=== PATIENT | female | born 1965 | race Caucasian/White ===

== ENCOUNTER 2019-09-07 00:24 | Emergency (ER) | payer MEDICAID ==
[~2019-09-07] VITALS: Ht 162.6 cm; Wt 113.6 kg
[2019-09-07] MEDS ORDERED: ketorolac trometh inj. 60 MG/2 ML VIAL IM ONE (01:35)
[2019-09-07] MEDS ORDERED: HYDROcodone/acetaminophen 5mg/325mg tablet PO ONE (02:10)
[2019-09-07] MEDS ORDERED: HYDR-3965 PO (02:19)
[2019-09-07 02:46] VITALS: BP 144/70
== END 2019-09-07 02:42 | disposition home or self-care (01) ==
LOC: ER 00:25
DX: M77.9 Enthesopathy, unspecified (principal); M25.522 Pain in left elbow; Z88.5 Allergy status to narcotic agent; Z88.6 Allergy status to analgesic agent; Z79.899 Other long term (current) drug therapy; X50.0XXA Overexertion from strenuous movement or load, initial encounter; Y93.89 Activity, other specified; Y92.89 Other specified places as the place of occurrence of the external cause; Y99.8 Other external cause status
CPT/HCPCS: 73030; 96372; 99283; J1885

== ENCOUNTER 2019-09-07 17:57 | Emergency (ER) | payer MEDICAID ==
[~2019-09-07] VITALS: Ht 162.6 cm; Wt 113.6 kg
[~2019-09-07 17:57] MED LIST: HYDR-3965 PO
[2019-09-07 18:03] VITALS: BP 147/76
[2019-09-07] MEDS ORDERED: ketorolac trometh inj. 60 MG/2 ML VIAL IM ONE (18:10)
== END 2019-09-07 18:31 | disposition home or self-care (01) ==
LOC: ER 17:58
DX: M25.512 Pain in left shoulder (principal); G89.29 Other chronic pain; Z98.890 Other specified postprocedural states; Z88.5 Allergy status to narcotic agent; Z88.6 Allergy status to analgesic agent; Z79.899 Other long term (current) drug therapy
CPT/HCPCS: 96372; 99283; J1885

== ENCOUNTER 2023-03-04 10:56 | Emergency (ER) | payer BC, MEDICAID ==
[~2023-03-04] VITALS: Ht 162.6 cm; Wt 100.0 kg
[2023-03-04 11:05] VITALS: BP 163/74
--- NOTE | 2023-03-04 11:18 | NUR ---
PT IN [facility]11, PT C/O HEADACHE X3 DAYS. PT STATES SHE TOOK IBU AND IT SEEMED TO GO AWAY. PT SAID IT STARTED AGAIN TODAY. PT EDUCATED TO POC. PT IN AGREEMENT. PENDING MD ORDERS EVAL AND TREATMENT.
[2023-03-04] MEDS ORDERED: metoclopramide 10mg tablet PO ONE (11:25)
[2023-03-04] MEDS ORDERED: SUMAtriptan 5 mg Nasal Spray NS ONE (11:45)
[2023-03-04] MEDS ORDERED: SUMAtriptan succ. 6 MG/0.5ml vial SQ ONE (12:00)
[2023-03-04] MEDS ORDERED: METO-292 PO (13:19)
[2023-03-04] MEDS ORDERED: [UNRECOGNIZED DRUG - CODE] PO (13:19)
[2023-03-04] MEDS ORDERED: [UNRECOGNIZED DRUG - CODE] OT (13:34)
== END 2023-03-04 13:30 | disposition home or self-care (01) ==
LOC: ER 10:56
DX: G43.909 Migraine, unspecified, not intractable, without status migrainosus (principal); G89.29 Other chronic pain; Z98.890 Other specified postprocedural states; Z88.5 Allergy status to narcotic agent; Z79.899 Other long term (current) drug therapy
CPT/HCPCS: 96372; 99283; J3030

== ENCOUNTER 2023-05-19 17:50 | Emergency (ER) | payer OTHER, BC, MEDICAID ==
[~2023-05-19] VITALS: Ht 162.6 cm; Wt 93.1 kg
[~2023-05-19 17:50] MED LIST changes: -HYDR-3965 PO; +METO-292 PO; +[UNRECOGNIZED DRUG - CODE] OT; +[UNRECOGNIZED DRUG - CODE] PO
[2023-05-19 18:53] VITALS: BP 170/88
--- NOTE | 2023-05-19 19:12 | NUR ---
C COLLAR PLACED IN TRIAGE.
[2023-05-19] MEDS ORDERED: ORPH100T4 PO (21:34)
== END 2023-05-19 21:50 | disposition home or self-care (01) ==
LOC: ER 17:50
DX: S16.1XXA Strain of muscle, fascia and tendon at neck level, initial encounter (principal); S90.31XA Contusion of right foot, initial encounter; S46.912A Strain of unspecified muscle, fascia and tendon at shoulder and upper arm level, left arm, initial encounter; S46.911A Strain of unspecified muscle, fascia and tendon at shoulder and upper arm level, right arm, initial encounter; R07.81 Pleurodynia; M79.674 Pain in right toe(s); G43.909 Migraine, unspecified, not intractable, without status migrainosus; E03.9 Hypothyroidism, unspecified; M19.90 Unspecified osteoarthritis, unspecified site; Z88.5 Allergy status to narcotic agent; Z88.6 Allergy status to analgesic agent; V89.2XXA Person injured in unspecified motor-vehicle accident, traffic, initial encounter; Y93.89 Activity, other specified; Y92.89 Other specified places as the place of occurrence of the external cause; Y99.8 Other external cause status
CPT/HCPCS: 73630; 99283; L0172

== ENCOUNTER 2024-10-28 08:42 | Emergency (ER) | payer BC, MEDICAID, OTHER ==
[~2024-10-28] VITALS: Ht 167.6 cm; Wt 107.7 kg
[~2024-10-28 08:42] MED LIST changes: +ORPH100T4 PO
[2024-10-28 08:44] VITALS: BP 221/92; PULSE 81; RESP 18; TEMP 97.8; O2SAT 97
== END 2024-10-28 12:12 | disposition left against medical advice (07) ==
LOC: ER 08:43
DX: G43.909 Migraine, unspecified, not intractable, without status migrainosus (principal); Z53.21 Procedure and treatment not carried out due to patient leaving prior to being seen by health care provider

== ENCOUNTER 2025-02-08 21:50 | Emergency (ER) | payer BC ==
[~2025-02-08] VITALS: Ht 162.6 cm; Wt 105.5 kg
[2025-02-08 23:13] LABS: BASOPHILS # (AUTO) 0.1 X10'3 (0-0.2); EOSINOPHILS # (AUTO) 0.4 X10'3 (0-0.9); EOSINOPHILS % (AUTO) 6.7 % (0-6); HEMATOCRIT 37.9 % (35.0-45.0); HEMOGLOBIN 12.7 g/dl (12.0-16.0); LYMPHOCYTES # (AUTO) 1.1 X10'3 (1.1-4.8); LYMPHOCYTES % (AUTO) 20.5 % (21-51); MEAN CORPUSCULAR HEMOGLOBIN 29.6 PG (27.0-31.0); MEAN CORPUSCULAR HGB CONC 33.5 g/dL (33.0-36.5); MEAN CORPUSCULAR VOLUME 88.3 FL (78-98); MEAN PLATELET VOLUME 7.7 FL (7.4-10.4); MONOCYTES # (AUTO) 0.5 X10'3 (0-0.9); MONOCYTES % (AUTO) 9.3 % (2-12); NEUTROPHILS # (AUTO) 3.5 X10'3 (1.8-7.7); NEUTROPHILS % (AUTO) 62.5 % (42-75); PLATELET COUNT 264 X10'3 (140-440); RED BLOOD COUNT 4.29 X10'6 (4.20-5.60); RED CELL DISTRIBUTION WIDTH 15.2 % (11.5-14.5); WHITE BLOOD COUNT 5.6 X10'3 (4.5-11.0)
[2025-02-08 23:28] LABS: ALANINE AMINOTRANSFERASE 22 U/L (12-78); ALBUMIN 3.8 G/DL (3.4-5.0); ALBUMIN/GLOBULIN RATIO 1.1 (1.1-1.5); ALKALINE PHOSPHATASE 80 IU/L (46-116); ANION GAP 8 (8-16); ASPARTATE AMINO TRANSFERASE 16 U/L (10-37); BILIRUBIN,TOTAL 0.2 MG/DL (0.1-1.0); BLOOD UREA NITROGEN 14 MG/DL (7-18); BUN/CREATININE RATIO 18.7 (10.0-20.0); CALCIUM 8.8 MG/DL (8.5-10.1); CHLORIDE 107 MMOL/L (99-107); CREATININE 0.75 MG/DL (0.40-0.90); GLUCOSE 110 MG/DL (70-104); POTASSIUM 4.1 MMOL/L (3.5-5.1); SODIUM 144 MMOL/L (135-145); TOTAL CARBON DIOXIDE 28.9 MMOL/L (24-32); TOTAL PROTEIN 7.2 G/DL (6.4-8.2); eCRCL 70 ML/MIN; eGFR 79 ML/MIN
[2025-02-08 23:41] LABS: PRO BRAIN NATRIURETIC PEPTIDE 238 PG/ML (0-125)
[2025-02-09 02:55] VITALS: BP_DIAS 102; RESP 16; O2SAT 97
[2025-02-09] MEDS ORDERED: LISI10TA27 PO (03:03)
[2025-02-09 03:10] VITALS: BP_SYST 234; PULSE 90
[2025-02-09] MEDS: lisinopril 10 MG tablet PO ONE (03:10)
[2025-02-09 03:13] VITALS: TEMP 98
== END 2025-02-09 03:14 | disposition home or self-care (01) ==
LOC: ER 21:51
DX: I95.9 Hypotension, unspecified (principal); E03.9 Hypothyroidism, unspecified; M19.90 Unspecified osteoarthritis, unspecified site; G43.909 Migraine, unspecified, not intractable, without status migrainosus; Z88.5 Allergy status to narcotic agent; Z79.899 Other long term (current) drug therapy; Z98.890 Other specified postprocedural states
CPT/HCPCS: 36415; 71045; 80053; 83880; 84484; 85025; 93005; 99285